=== PATIENT | female | born 1940 | race Caucasian/White ===

== ENCOUNTER → 2020-08-30 | Outpatient (CLI) | payer MEDICARE, OTHER ==
[~2020-08-30] MED LIST: GEMF600T OR; GLIP5TAB12 PO; LATA0.0020 EACHEYE; MAX7550T GT; METF-370 OR; POTASSIUM; PREG75CA OR; PRO20T GT; SITA100T7 OR; [UNRECOGNIZED DRUG - CODE] LEFTEYE; [UNRECOGNIZED DRUG - CODE] RIGHTEYE
== END | disposition home or self-care (01) ==
LOC: LAB 10:22
PROVIDERS: ATTEND Podiatrist Foot & Ankle Surgery
DX: L57.0 Actinic keratosis (principal); L82.1 Other seborrheic keratosis

== ENCOUNTER → 2020-10-30 | Day surgery (SDC) | payer MEDICARE, OTHER ==
[2020-10-25 12:58] LABS: Urine Bacteria FEW /hpf (None Seen); Urine Blood Negative /uL (Negative); Urine Specific Gravity 1.017 (1.001-1.035); Urine WBC 5 /hpf (0 - 5)
[2020-10-25 13:04] LABS: Basophils # (auto) 0 10 ^3/uL (0-0.2); Basophils % (auto) 0.3 % (0.0-2.0); Eosinophils # (auto) 0.2 10 ^3/uL (0-0.8); Eosinophils % (auto) 4.9 % (0.0-7.0); Hematocrit 38.2 % (36.0-46.0); Hemoglobin 13.6 g/dL (12.2-16.2); Lymphocytes # (auto) 1.5 10 ^3/uL (0.4-5.4); Lymphocytes % (auto) 33.2 % (10.0-50.0); Mean Corpuscular Hemoglobin 32.7 pg (28.0-32.0); Mean Corpuscular Hgb Conc. 35.5 g/dL (32.0-36.0); Mean Corpuscular Volume 92.2 fL (80.0-100.0); Monocytes # (auto) 0.6 10 ^3/uL (0-1.3); Monocytes % (auto) 12.9 % (0.0-12.0); Neutrophils # (auto) 2.2 10 ^3/uL (1.6-8.6); Neutrophils % (auto) 48.7 % (37.0-80.0); Platelet Count (auto) 270 10^3/uL (140-450); Red Blood Cells 4.15 10^6/uL (4.0-5.20); Red Cell Distribution Width 13.3 % (11.8-14.3); White Blood Cell 4.6 10^3/uL (4.4-10.8)
[2020-10-25 13:12] LABS: INR 1.03 (0.9-1.15); Partial Thromboplastin Time 25.9 sec (23.0-31.2)
[2020-10-25 13:30] LABS: Albumin 3.4 g/dL (3.4-5.0); BUN/Creatinine Ratio 15.3; Calcium 9.5 mg/dL (8.5-10.1); Potassium 3.3 mmol/L (3.5-5.1)
[2020-10-25 13:33] LABS: Bilirubin, Total 0.2 mg/dL (0.2-1.0); Total Protein 7.6 g/dL (6.4-8.2)
[~2020-10-30] VITALS: Ht 167.6 cm; Wt 83.5 kg
[~2020-10-30] MED LIST changes: -GEMF600T OR; +GEMF600T PO; +LOSA-69 PO; -MAX7550T GT; +MAX7550T PO; -METF-370 OR; +METF-370 PO; +MIDAZOLAM HCL 1MG/1ML-2 ML VIAL ONE; +NEOMYCIN-BACITRACIN-POLYM 15GM TOP OINT TOP ONE; +ONDANSETRON HCL 4 MG/2 ML VIAL IV ONE; +POLY33504 PO; +POTA-220 PO; -POTASSIUM; +PRED1SUS4 RIGHTEYE; -PRO20T GT; +ROPIVACAINE 0.5% (5MG/ML) 20ML AMPULE IJ ONE; +SULF400T11 PO; -[UNRECOGNIZED DRUG - CODE] RIGHTEYE; +ceFAZolin 1GM/50ML 50 ML IV ONE; +fentaNYL CITRATE 100 MCG/2 ML VL ONE
[2020-10-30 08:30] VITALS: BP 122/50
== END | disposition home or self-care (01) ==
LOC: SUR 06:19
PROVIDERS: ATTEND Podiatrist Foot & Ankle Surgery
DX: S62.609A Fracture of unspecified phalanx of unspecified finger, initial encounter for closed fracture (principal); L97.528 Non-pressure chronic ulcer of other part of left foot with other specified severity; E66.9 Obesity, unspecified; M79.89 Other specified soft tissue disorders; I10 Essential (primary) hypertension; E11.40 Type 2 diabetes mellitus with diabetic neuropathy, unspecified; Z20.822 Contact with and (suspected) exposure to COVID-19; Z98.890 Other specified postprocedural states; Z79.899 Other long term (current) drug therapy; Z90.710 Acquired absence of both cervix and uterus; Z68.29 Body mass index [BMI] 29.0-29.9, adult; Z87.891 Personal history of nicotine dependence; X58.XXXA Exposure to other specified factors, initial encounter; Y93.89 Activity, other specified; Y92.89 Other specified places as the place of occurrence of the external cause; Y99.8 Other external cause status
CPT/HCPCS: 28160; 36415; 80053; 81001; 82962; 85025; 85610; 85730; 88305; 88311; J0690; J2250; J2405; J2795; J3010; U0003

== ENCOUNTER 2022-10-28 06:11 | Day surgery (SDC) | payer MEDICARE, OTHER ==
[2022-10-23 12:25] LABS: Basophils # (auto) 0 10 ^3/uL (0-0.2); Basophils % (auto) 0.7 % (0.0-2.0); Eosinophils # (auto) 0.7 10 ^3/uL (0-0.8); Eosinophils % (auto) 11.9 % (0.0-7.0); Hematocrit 39.8 % (36.0-46.0); Hemoglobin 13.3 g/dL (12.2-16.2); Lymphocytes # (auto) 2.1 10 ^3/uL (0.4-5.4); Lymphocytes % (auto) 36.9 % (10.0-50.0); Mean Corpuscular Hemoglobin 31.6 pg (28.0-32.0); Mean Corpuscular Hgb Conc. 33.5 g/dL (32.0-36.0); Mean Corpuscular Volume 94.4 fL (80.0-100.0); Monocytes # (auto) 0.7 10 ^3/uL (0-1.3); Monocytes % (auto) 11.4 % (0.0-12.0); Neutrophils # (auto) 2.2 10 ^3/uL (1.6-8.6); Neutrophils % (auto) 39.1 % (37.0-80.0); Nucleated Red Blood Cells % 0.2 %; Red Blood Cells 4.21 10^6/uL (4.0-5.20); White Blood Cell 5.7 10^3/uL (4.4-10.8)
[2022-10-23 12:47] LABS: INR 0.97 (0.9-1.15)
[2022-10-23 12:56] LABS: Albumin 3.7 g/dL (3.4-5.0); Calcium 10.1 mg/dL (8.5-10.1); Potassium 3.6 mmol/L (3.5-5.1)
[2022-10-23 13:02] LABS: Bilirubin, Total 0.3 mg/dL (0.2-1.0)
[2022-10-26 12:16] LABS: Urine Bacteria NONE SEEN /hpf (None Seen); Urine Blood 1+ /uL (Negative); Urine Specific Gravity 1.019 (1.001-1.035); Urine WBC 8 /hpf (0 - 5)
[~2022-10-28] VITALS: Ht 167.6 cm; Wt 78.9 kg
[~2022-10-28 06:11] MED LIST changes: +DIPH-515 GT; +EST0625T PO; -MIDAZOLAM HCL 1MG/1ML-2 ML VIAL ONE; -NEOMYCIN-BACITRACIN-POLYM 15GM TOP OINT TOP ONE; -ONDANSETRON HCL 4 MG/2 ML VIAL IV ONE; -ROPIVACAINE 0.5% (5MG/ML) 20ML AMPULE IJ ONE; +TRIA0.5C TOP; -ceFAZolin 1GM/50ML 50 ML IV ONE; -fentaNYL CITRATE 100 MCG/2 ML VL ONE
[2022-10-28] MEDS ORDERED: ROPIVACAINE 0.5% (5MG/ML) 20ML AMPULE IJ ONE (06:29)
[2022-10-28] MEDS ORDERED: ceFAZolin 1GM/50ML 100 ML IV ONE (06:42)
[2022-10-28] MEDS ORDERED: ceFAZolin 1GM VL ONE (06:55)
[2022-10-28] MEDS ORDERED: MIDAZOLAM HCL 2MG/2ML 2ml VIAL (1mg/ml) ONE (07:32)
[2022-10-28] MEDS ORDERED: fentaNYL CITRATE 100 MCG/2 ML VL ONE (07:32)
[2022-10-28] MEDS ORDERED: SUCCINYLCHOLINE CHLORIDE 20 MG/ML 10ML VIAL IV ONE (07:33)
[2022-10-28] MEDS ORDERED: ROCURONIUM 10MG/ML 10ML VIAL IV ONE (07:33)
[2022-10-28] MEDS ORDERED: PROPOFOL 10 MG/ML 20 ML IV ONE (07:35)
[2022-10-28] MEDS ORDERED: ONDANSETRON HCL 4 MG/2 ML VIAL ONE (07:35)
[2022-10-28] MEDS ORDERED: LIDOCAINE 2% (LOCAL ANESTH.) PF 5ml SDV ONE (07:35)
[2022-10-28] MEDS ORDERED: HYDROmorphone HCL 2 MG/ML VL/or syr IV PRN ×2 (08:00)
[2022-10-28] MEDS ORDERED: ONDANSETRON HCL 4 MG/2 ML VIAL IV PRN (08:00)
[2022-10-28] MEDS ORDERED: BACITRACIN TOP OINT 1 UD PKG TOP ONE (08:27)
[2022-10-28 09:35] VITALS: BP 150/56
== END 2022-10-28 09:49 | disposition home or self-care (01) ==
LOC: SUR 06:11
PROVIDERS: ATTEND Podiatrist Foot & Ankle Surgery
DX: M21.961 Unspecified acquired deformity of right lower leg (principal); E11.8 Type 2 diabetes mellitus with unspecified complications; L89.893 Pressure ulcer of other site, stage 3; M79.671 Pain in right foot; I10 Essential (primary) hypertension; Z90.49 Acquired absence of other specified parts of digestive tract; Z82.49 Family history of ischemic heart disease and other diseases of the circulatory system; Z83.3 Family history of diabetes mellitus; Z83.6 Family history of other diseases of the respiratory system; Z87.891 Personal history of nicotine dependence; Z90.710 Acquired absence of both cervix and uterus; Z79.899 Other long term (current) drug therapy; Z98.890 Other specified postprocedural states; Z20.822 Contact with and (suspected) exposure to COVID-19
CPT/HCPCS: 27685; 36415; 80053; 81001; 82962; 85025; 85610; 85730; 87070; 87075; 87205; J0330; J0690; J2001; J2250; J2405; J2704; J2795; J3010; U0003